=== PATIENT | male | born 2000 | race African-American/Black ===

== ENCOUNTER 2020-04-10 15:55 | Emergency (ER) | payer OTHER, BC ==
[~2020-04-10] VITALS: Ht 185.4 cm; Wt 75.0 kg
[2020-04-10] MEDS ORDERED: HYDROcodone/APAP 5/325MG 1 TAB TABLET PO ONE (17:30)
[2020-04-10] MEDS ORDERED: IBUPROFEN 200 MG TABLET. PO ONE (17:30)
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
[2020-04-10] MEDS ORDERED: HYDR-3164 PO (18:22)
[2020-04-10] MEDS ORDERED: IBUP-1007 PO (18:22)
[2020-04-10] MEDS ORDERED: ORPH100T PO (18:22)
[2020-04-10 18:32] VITALS: BP 126/75
== END 2020-04-10 18:37 | disposition home or self-care (01) ==
LOC: ER 15:55
DX: G89.11 Acute pain due to trauma (principal); M25.562 Pain in left knee; M54.6 Pain in thoracic spine; M79.652 Pain in left thigh; V49.9XXA Car occupant (driver) (passenger) injured in unspecified traffic accident, initial encounter; Y93.89 Activity, other specified; Y92.413 State road as the place of occurrence of the external cause; Y99.8 Other external cause status
CPT/HCPCS: 29505; 73552; 73564; 99284